=== PATIENT | male | born 1970 ===

== ENCOUNTER → 2021-04-21 | Day surgery (SDC) | payer OTHER ==
[~2021-04-21] VITALS: Ht 175.3 cm; Wt 85.7 kg
[~2021-04-21] MED LIST: AMLODIPINE BESYL5 MG PO; ATORVASTATIN CA40 MG PO; BYSTOLIC20 MG PO; CLARITIN10 MG PO; DESYREL50 MG PO; JANUVIA25 MG PO; JARDIANCE25 MG PO
== END | disposition home or self-care (01) ==
LOC: FAS 09:47
DX: Z12.11 Encounter for screening for malignant neoplasm of colon (principal); D12.3 Benign neoplasm of transverse colon; K57.30 Diverticulosis of large intestine without perforation or abscess without bleeding; K64.8 Other hemorrhoids; E11.9 Type 2 diabetes mellitus without complications; I10 Essential (primary) hypertension; E78.00 Pure hypercholesterolemia, unspecified; Z72.89 Other problems related to lifestyle; Z72.0 Tobacco use
CPT/HCPCS: 82962; J2250; J2704; J7120